=== PATIENT | female | born 1960 | race Caucasian/White ===

== ENCOUNTER 2021-10-03 12:24 | Outpatient (CLI) | payer OTHER, SELFPAY ==
--- NOTE | 2021-10-03 | ECHO_ITS ---
Patient Info Name: Marlene Grossman Age: 60 years : 1960 Gender: Female Ht: 64 in Wt: 150 lbs BSA: 1.77 m2 HR: 65 bpm BP: 127 / 69 mmHg Heart Rhythm: Sinus Rhythm Technical Quality: Good Exam Date: 10/03/2021 1:15 PM Exam Location: [facility] Patient Status: Outpatient Admit Date: 10/03/2021 Staff Ordering Physician: SavageAnne-Marie Practice Professional: Debbie Nolen RDCS Attending Provider: Savage, Anne-Marie VANEGAS Referring Physician: Savage BUTT; Exam Type: CA echo doppler color flow Study Info Indications - CARDIAC MURMUR Complete two-dimensional, color flow and Doppler transthoracic echocardiogram is performed. Summary 1. Complete two-dimensional, color flow and Doppler transthoracic echocardiogram is performed. 2. Normal left ventricular size with mild concentric hypertrophy and a mild degree of asymmetric septal hypertrophy as well. Hyperdynamic left ventricular systolic function, ejection fraction greater than 72%. No segmental wall motion abnormalities. Grade 2 diastolic dysfunction is present. 3. There is a mildly increased intraventricular gradient with Valsalva maneuver of 2.6 m/sec which corresponds to an intraventricular gradient of about 28 mmHg consistent with a very mild degree of outflow tract obstruction, consistent with hypertrophic obstructive cardiomyopathy. 4. Left atrial chamber dimension is moderately enlarged. 5. There is mild tricuspid valve regurgitation. 6. Mild pulmonary hypertension, estimated pulmonary arterial systolic pressure is 37 mmHg. 7. Normal sinus rhythm. Left Ventricle Left ventricular chamber dimension is normal. Left ventricular systolic function is hyperdynamic, estimated at Empty. There is mildly increased left ventricular wall thickness. Left ventricular septal wall motion is normal. The left ventricular diastolic function is grade II diastolic dysfunction. Right Ventricle Right ventricular chamber dimension is normal. Right ventricular systolic function is normal. Left Atria Left atrial chamber dimension is moderately enlarged. Right Atria Right atrial chamber dimension is normal. Aortic Valve The aortic valve is trileaflet. There is mild aortic valve sclerosis. There is no aortic valve stenosis. There is trace aortic valve regurgitation. Pulmonic Valve The pulmonic valve is normal. There is no pulmonic valve stenosis. There is trace pulmonic regurgitation. Mitral Valve The mitral valve has normal leaflets. There is no mitral valve stenosis. There is no mitral valve regurgitation. The mitral valve annulus is moderately calcified. Tricuspid Valve The tricuspid valve leaflets are normal. There is no significant tricuspid valve stenosis. There is mild tricuspid valve regurgitation. Mild pulmonary hypertension, estimated pulmonary arterial systolic pressure is 37 mmHg. Pericardium/Pleural The pericardium appears normal. There is no pericardial effusion. Inferior Vena Cava Normal inferior vena cava with >50% collapse upon inspiration consistent with Empty right atrial pressure, 10 mmHg. Aorta The aortic root size at the sinus of Valsalva is normal. The prox ascending aorta size is normal. Left Ventricular Outflow Tract Name Value Normal LVOT 2D
== END 2021-10-03 12:25 | disposition home or self-care (01) ==
LOC: ANHCARD 12:29
PROVIDERS: PCP Physician Assistant; Visit Provider Physician Assistant
DX: R01.1 Cardiac murmur, unspecified (principal)
CPT/HCPCS: 93306

== ENCOUNTER 2022-03-06 19:26 | Emergency (ER) | payer OTHER, SELFPAY ==
[2022-03-06 19:33] VITALS: BP 140/71; PULSE 68; RESP 16; TEMP 36.8; O2SAT 99
--- NOTE | 2022-03-06 19:34 | ED.DENTAL ---
HPI - Dental/Oral General Chief complaint: Dental/Oral Stated complaint: tooth ache Time Seen by Provider: 03/06/22 19:34 Source: patient Mode of arrival: ambulatory Limitations: no limitations History of Present Illness HPI Narrative: Mr. Grossman is a 7-year-old patient presenting to the clinic today with complaints of dental pain. She reports that she had a filling fall out of her top wisdom tooth couple days ago and she got a piece of meat stuck in there and has used a toothpick to pick that out. She thinks that that she now has tooth infection to the bilateral upper back teeth Related Data Home Medications Medication Instructions Recorded Confirmed lisinopril 10 mg tablet 10 mg PO DAILY 01/03/22 01/03/22 Allergies Allergy/AdvReac Type Severity Reaction Status Date / Time No Known Allergies Allergy Verified 03/06/22 19:27 Review of Systems Review of Systems: Pertinent positives per HPI. Patient denies any fever, chills, rash, headache, visual changes, dizziness, cough, runny nose, sore throat, shortness of breath, chest pain, palpitations, nausea, vomiting, diarrhea, constipation, abdominal pain, or any urinary issues. [facility] Past Medical History Medical History Anxiety Family History Family History Father Renal cancer Cerebrovascular accident Sibling Liver cancer Cerebrovascular accident Mother Hypertension Brain aneurysm Social History Social History Smoking status: Never smoker Comments At the time of my signature, I reviewed and agree with the nursing past medical, surgical, social, and family history. There is no relevant family history pertinent to the patient complaint. Exam Narrative: General: Well-developed, well nourished, in no apparent distress Head: Normocephalic, atraumatic Eyes: Pupils equally round and reactive to light bilaterally, EOM intact, sclera and conjunctive clear, no discharge, lids normal Ears: TMs intact and clear, ear canals clear, no drainage, grossly hearing normal. Nose: Nares patent, no discharge, no inflammation, no sinus tenderness. Mouth: Oropharynx without lesions or masses, poor dentition, MMM. Gum swelling and fractured tooth #16, pain and gingival swelling to #1 Neck: Supple, trachea midline, no enlargement of anterior or posterior cervical nodes, no thyroid masses or goiter palpable. Cardio: Regular rate and rhythm, s1 and s2 normal, no murmur appreciated. Resp: Clear to auscultation bilaterally anteriorly and posteriorly, no rhonchi, rales, wheezing or rubs Course Course Emergency Course: Portions of this record may have been created with voice recognition software. Level of Care: Express Care Visit Vital Signs Vital signs: Vital signs reviewed MDM - Dental/Oral MDM Narrative Medical decision making narrative: At the time of visit patient is resting comfortably on the exam table. I suspect patient has a dental infection. I will give her a prescription for amoxicillin and have her follow-up with her dentist soon as possible. Supportive measures were discussed with the patient she voiced understanding of discharge instructions and agrees to treatment plan. Differential Diagnosis Differential diagnosis: Likely dental caries, toothache, dental abscess and fracture of tooth Discharge Plan Discharge Clinical Impression: Dental infection Patient Disposition: Home, Self-Care Condition: Stable Instructions: Antibiotic Form, Toothache (ED) Additional Instructions: Take Tylenol/Motrin as needed for pain or fever Take amoxicillin as prescribed May apply heating pad to the affected area to help alleviate pain Follow-up with your dentist as soon as possible Follow-up with your PCP in 3 to 5 days if symptoms persist or sooner if they worsen
== END 2022-03-06 19:38 | disposition home or self-care (01) ==
PROVIDERS: Emergency Provider Nurse Practitioner Family; PCP Physician Assistant
DX: K04.7 Periapical abscess without sinus (principal); I10 Essential (primary) hypertension
CPT/HCPCS: 99213; G0463

== ENCOUNTER 2022-03-26 16:29 | Emergency (ER) | payer OTHER, SELFPAY ==
[2022-03-26 16:40] VITALS: BP 142/58; PULSE 68; RESP 16; TEMP 36.1; O2SAT 98
--- NOTE | 2022-03-26 17:30 | ED.URI ---
HPI - URI/Sore Throat General Chief Complaint: Upper Respiratory Infection Stated Complaint: cough Time Seen by Provider: 03/26/22 17:20 Source: patient, RN notes reviewed and old records reviewed Mode of arrival: ambulatory Limitations: no limitations History of Present Illness HPI Narrative: 61 year old female who presents to [facility] care with complaints of cough and is concerned that she has COVID. Patient reports that her sister tested positive for COVID yesterday and she has been around her. Patient reports that she is tired and achy and has noted hoarseness.She reports that she finished antibiotic on Friday for dental infection and is suppose to have her 3 teeth pulled on Friday. Patient reports that she has not had COVID vaccinations has not done home test. MD elicited complaint: cough and sore throat Onset (ago): day(s) (1) Treatments prior to arrival: other (just completed amoxicillin for dental infection) Related Data Home Medications Medication Instructions Recorded Confirmed lisinopril 10 mg tablet 10 mg PO DAILY 01/03/22 01/03/22 amlodipine 10 mg tablet mg 03/26/22 Allergies Allergy/AdvReac Type Severity Reaction Status Date / Time No Known Allergies Allergy Verified 03/26/22 16:54 Review of Systems Review of Systems: CONSTITUTIONAL: Denies malaise, chills, sweats, or fever. EYES: Denies visual changes, redness, or discharge. ENT: Reports rhinorrhea, congestion,no sinus pain, otalgia or sore throat. CARDIOVASCULAR: Denies chest pain, palpitations, or edema. RESPIRATORY: Reports cough.? Denies dyspnea. GASTROINTESTINAL: Denies abdominal pain, nausea, vomiting, diarrhea SKIN: Denies rash or itching. MUSCULOSKELETAL:Reports myalgia. NEUROLOGIC: Denies headache. All systems reviewed & are unremarkable except as noted in HPI and below PMFSH Past Medical History Medical History (Updated 03/28/22 @ 22:00 by Rachelle Portillo NP) Anxiety Cellulitis History of dental problems Hypertension Family History Family History Father Renal cancer Cerebrovascular accident Sibling Liver cancer Cerebrovascular accident Mother Hypertension Brain aneurysm Social History Social History (Updated 03/28/22 @ 22:03 by Rachelle Portillo NP) Smoking status: Never smoker Alcohol intake: unknown Substance use: never Living arrangements: with family Gender identity (if verbalized by the patient): Female Comments At time of signature, agree with nursing past medical, surgical, social and family history. There is no relevant family history pertinent to the presenting complaint Exam Narrative: GENERAL: Well-appearing, well-nourished, and in no acute distress. HEAD: Normocephalic EYES: PERRLA, conjunctivae clear ENT: Nares clear, turbinates edematous and erythematous, clear discharge. Mucous membranes moist. TM pearly bang with dull light reflex bilaterally; no tragal tenderness. Oropharynx erythematous without lesions. Tonsils not enlarged and without exudate, no drooling, no hoarseness, no trismus, uvula midline, post nasal discharge NECK: Supple. No lymphadenopathy CHEST: Clear to auscultation, breath sounds equal. No wheezing, rhonchi, rales, or stridor. No respiratory distress, speaks in full sentences. cough noted SAO2 98% on room air HEART: Regular rate and rhythm. No murmur heard. SKIN: Warm, dry, no rash. NEURO: Alert and oriented x3. PSYCH: Normal mood and affect Course Course Emergency Course: Patient is aware of diagnosis, understands and agrees to treatment plan.? Anticipatory guidance given.? Patient agrees to follow-up as directed and is aware of reasons to seek care at the emergency department. Portions of this record may have been created with voice recognition software Level of Care: Express Care Visit Vital Signs Vital signs: Vital Signs Temperature 36.1 C L 03/26/22 16:40 P
== END 2022-03-26 17:38 | disposition home or self-care (01) ==
PROVIDERS: Emergency Provider Registered Nurse; PCP Physician Assistant
DX: J06.9 Acute upper respiratory infection, unspecified (principal); Z20.822 Contact with and (suspected) exposure to COVID-19; I10 Essential (primary) hypertension
CPT/HCPCS: 87426; 99213; C9803; G0463

== ENCOUNTER 2023-03-27 08:41 | Outpatient (CLI) | payer OTHER, SELFPAY ==
--- NOTE | 2023-03-27 08:54 | ECHO_ITS ---
Patient Info Name: Marlene Grossman Age: 62 years : 1960 Gender: Female Ht: 64 in Wt: 150 lbs BSA: 1.77 m2 HR: 64 bpm BP: 127 / 68 mmHg Technical Quality: Good Exam Date: 03/27/2023 8:58 AM Exam Location: [facility] Patient Status: Outpatient Admit Date: 03/27/2023 Staff Ordering Physician: Vance Stokes DO [employer] Blower Feeder: Yuli Freitas RDCS Attending Provider: Vance Stokes DO Referring Physician: Kike THAKUR; Exam Type: CA echo doppler color flow Study Info Indications I42.2 - Other hypertrophic cardiomyopathy Complete two-dimensional, color flow and Doppler transthoracic echocardiogram is performed. Summary 1. Complete two-dimensional, color flow and Doppler transthoracic echocardiogram is performed. 2. Left ventricular chamber dimension is normal. 3. Ventricular septum is sigmoid shaped. No LVOT obstruction. 4. Left ventricular systolic function is hyperdynamic, estimated at >70%. 5. There is mild concentric increased left ventricular wall thickness. 6. The left ventricular diastolic function is grade I diastolic dysfunction. 7. E/e' 22 is elevated. 8. Global longitudinal strain is normal at -18.9%. 9. Left atrial chamber dimension is moderately enlarged. 10. There is moderate aortic valve sclerosis. 11. There is mild aortic valve regurgitation. 12. The mitral valve has moderately calcified annulus. 13. No pulmonary hypertension, estimated pulmonary arterial systolic pressure is 24 mmHg. Left Ventricle Ventricular septum is sigmoid shaped. No LVOT obstruction. E/e' 22 is elevated. Global longitudinal strain is normal at -18.9%. Left ventricular chamber dimension is normal. Left ventricular systolic function is hyperdynamic, estimated at >70%. There is mild concentric increased left ventricular wall thickness. The left ventricular diastolic function is grade I diastolic dysfunction. Right Ventricle Right ventricular chamber dimension is normal. Right ventricular systolic function is normal. Left Atria Left atrial chamber dimension is moderately enlarged. Right Atria Right atrial chamber dimension is normal. Aortic Valve The aortic valve is trileaflet. There is moderate aortic valve sclerosis. There is no aortic valve stenosis. There is mild aortic valve regurgitation. Pulmonic Valve There is no pulmonic regurgitation. Mitral Valve The mitral valve has moderately calcified annulus. There is no mitral valve stenosis. There is no mitral valve regurgitation. Tricuspid Valve There is no tricuspid valve regurgitation. No pulmonary hypertension, estimated pulmonary arterial systolic pressure is 24 mmHg. Pericardium/Pleural There is no pericardial effusion. Inferior Vena Cava Normal inferior vena cava with >50% collapse upon inspiration consistent with normal right atrial pressure, 5 mmHg. Aorta The aortic root size at the sinus of Valsalva is normal. Left Ventricular Outflow Tract Name Value Normal LVOT 2D LVOT Diameter 2.1 cm LVOT Doppler LVOT Peak Gradient 21 mmHg LVOT Mean Gradient 12 mmHg LVOT VTI 50 cm LVOT VTI/AV VTI Ratio 0.9 L
== END 2023-03-27 08:42 | disposition home or self-care (01) ==
LOC: ANHCARD 08:41
PROVIDERS: PCP Physician Assistant; Visit Provider Internal Medicine Cardiovascular Disease
DX: I42.2 Other hypertrophic cardiomyopathy (principal); I35.1 Nonrheumatic aortic (valve) insufficiency
CPT/HCPCS: 93306

== ENCOUNTER 2024-07-31 15:22 | Emergency (ER) | payer SELFPAY ==
--- OUTSIDE RECORDS SUMMARY | 2024-07-31 15:24 | XMS_ITS | Data Portability ---
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 if for blood work fro yesterdays visit. Not available 09/25/2023 11:32:25 11/24/2023 11/24/2023 sister with her today was also checked for these worms and non were found. she was gieven albendazole. Not available 11/24/2023 14:10:01 Plan of Treatment Reminders Order Date Submit Date Provider Last Modified By Organization Details Last Modified Time Details Appointments None recorded. Lab O&P (ova & parasites), stool 2024 025 PAWEL Mcneal, [address], [place], [address], 5 16:14:12 O&P (ova & parasites), stool 2023 024 PAWEL Mcneal, [address], [place], [address], 4 15:15:47 CMP, serum or plasma 2023 024 PAWEL Mcneal, [address], [place], [address], 4 09:18:46 albumin/cre atinine, mass ratio, urine 2023 024 [facility], [address], [place], [address], 4 09:18:45 lipid panel, serum 2023 024 [facility], [address], [place], [address], 4 09:18:45 CBC w/ auto diff 2023 024 [facility], [address], [place], [address], 4 09:18:47 HbA1c (hemoglobin A1c), blood 2023 024 [facility], [address], [place], [address], 4 09:18:47 O&P (ova & parasites), stool 2023 024 [facility], [address], [place], [address], 4 11:15:33 Referral gastroenter ologist referral 2023 024 [facility], [address], [place], [address], 4 14:45:48 Procedures None recorded. Surgeries None recorded. Imaging None recorded. Medication Orders aripiprazol e 10 mg tablet 2024 025 [facility], [address] [place] [address], [id number], 5 16:13:41 aripiprazol e 5 mg tablet 2023 024 [facility], [address], [place], [id number], 17:15:49 sertraline 50 mg tablet 2023 024 [facility], [address], [place], [id number], 12:33:55 sertraline 50 mg tablet 2023 024 [facility] #[id number], [address], [place], [address], 12:18:06 Patient TargetsNo targets recorded. Patient Instructions Encounter Date Encounter Id Patient Instructions Last Modified By Organization Details Last Modified Time 09/23/2023 [id number] A healthy lifestyle: care instructions Not available 09/25/2023 08:47:36 learning about high blood pressure Not available 09/23/2023 15:20:03 11/24/2023 [id number] I have reviewed the patient's medical record and the note from this clinical encounter. I was available by phone for the duration of the visit. I agree with the assessment and plan with the following addendum: [none]. Sven Clemens MD [email or web address] Not available 11/24/2023 20:11:31 07/06/2024 [id number] A healthy lifestyle: care instructions Not available 07/06/2024 14:04:07 Reason for Referral News Clerk Referral for Worms in stool Referring Physician: Patti Lund, Physical Therapy Aid, Encounter Date: 09/23/2023 Results Created Date Observation Date Name Description Value Unit Range Abnormal Flag Note LastModifiedBy Organization Detail LastModifiedTime 09/23/19 24 09/26/2023 ALBUM IN/CR EATIN INE RATIO ,URIN E creatinine, urine 99.6 mg/dL notest ab. Not Available [facility] ([facility]) [address], [place], [address], 09/26/2023 09:18:45 09/23/19 24 09/26/2023 ALBUM IN/CR EATIN INE RATIO ,URIN E albumin, urine 30.1 ug/mL notest ab. Not Available [facility] ([facility]) [address] [place], [address], 09/26/2023 09:18:45 09/23/19 24 09/26/2023 ALBUM IN/CR EATIN INE RATIO ,URIN E alb/creat ratio 30 mg/g_ creat 0-29 above high normal Carmelina l: 0 - 29 Moder ately incre ased: 30 - 300 Sever bhanu incre ased: >300 Not Available [facility] ([facility]) [address] [place], [address], 09/26/2023 09:18:45 09/23/19 24 09/26/2023 LIPID PANEL cholesterol, total 197 mg/dL 100-19 9 Not Available [facility] ([facility]) [address] [place], [address], 09/26/2023 09:18:45 09/23/19 24 09/26/2023 LIPID PANEL triglyceride s 204 mg/dL 0-149 above high normal Not Available [facility] ([facility]) [address] [place], [address], 09/26/2023 09:18:45 09/23/19 24 09/26/2023 LIPID PANEL HDL cholesterol 43 mg/dL >39 Not Available [facility] [address] [place], [address], 09/26/2023 09:18:45 09/23/19 24 09/26/2023 LIPID PANEL VLDL cholesterol collin 36 mg/dL 5-40 Not Available [facility] [address] [place], [address], 09/26/2023 09:18:45 09/23/19 24 09/26/2023 LIPID PANEL LDL chol calc ([facility]) 118 mg/dL 0-99 above high normal Not Available [facility]) [address] [place], [address], 09/26/2023 09:18:45 09/23/19 24 09/26/2023 COMP. METAB OLIC PANEL (14) glucose 97 mg/dL 70-99 Not Available [facility] ([facility]) [address] [place], [address], 09/26/2023 09:18:46 09/23/19 24 09/26/2023 COMP. METAB OLIC PANEL (14) BUN 32 mg/dL 8-27 above high normal Not Available [facility] ([facility]) [address] [place], [address], 09/26/2023 09:18:46 09/23/19 24 09/26/2023 COMP. METAB OLIC PANEL (14) creatinine 0.89 mg/dL 0.57-1 .00 Not Available [facility] ([facility]) [address] [place], [address], 09/26/2023 09:18:46 09/23/19 24 09/26/2023 COMP. METAB OLIC PANEL (14) eGFR 74 mL/mi n/1.7 3 >59 Not Available [facility] ([facility]) [address] [place], [address], 09/26/2023 09:18:46 09/23/19 24 09/26/2023 COMP. METAB OLIC PANEL (14) BUN/creatini ne ratio 36 12-28 above high normal Not Available [facility] ([facility]) [address] [place], [address], 09/26/2023 09:18:46 09/23/19 24 09/26/2023 COMP. METAB OLIC PANEL (14) sodium 142 mmol/ L 134-14 4 Not Available [facility] ([facility]) [address] [place], [id number], 09/26/2023 09:18:46 09/23/19 24 09/26/2023 COMP. METAB OLIC PANEL (14) potassium 4.5 mmol/ L 3.5-5. 2 Not Available [facility] ([facility]) [address] [place], [id number], 09/26/2023 09:18:46 09/23/19 24 09/26/2023 COMP. METAB OLIC PANEL (14) chloride 108 mmol/ L 96-106 above high normal Not Available [facility] [address] [facility] [place], [address], 09/26/2023 09:18:46 09/23/19 24 09/26/2023 COMP. METAB OLIC PANEL (14) carbon dioxide, total 23 mmol/ L 20-29 Not Available [facility] [address] [facility], [address], 09/26/2023 09:18:46 09/23/19 24 09/26/2023 COMP. METAB OLIC PANEL (14) calcium 9.0 mg/dL 8.7-10 .3 Not Available [facility]) [address] [facility] [place], [address], 09/26/2023 09:18:46 09/23/19 24 09/26/2023 COMP. METAB OLIC PANEL (14) protein, total 6.4 g/dL 6.0-8. 5 Not Available [facility] ([facility]) [address] [facility] [place], [address], 09/26/2023 09:18:46 09/23/19 24 09/26/2023 COMP. METAB OLIC PANEL (14) albumin 3.9 g/dL 3.9-4. 9 Not Available [facility] ([facility]) [address] [facility] [place], [place], [address], 09/26/2023 09:18:46 09/23/19 24 09/26/2023 COMP. METAB OLIC PANEL (14) globulin, total 2.5 g/dL 1.5-4. 5 Not Available [facility] ([facility]) [address] [facility], [id number], 09/26/2023 09:18:46 09/23/19 24 09/26/2023 COMP. METAB OLIC PANEL (14) A/G ratio 1.6 1.2-2. 2 Not Available [facility] [address] [facility], [id number], 09/26/2023 09:18:46 09/23/19 24 09/26/2023 COMP. METAB OLIC PANEL (14) bilirubin, total 0.3 mg/dL 0.0-1. 2 Not Available [facility]) [address] [facility] [place], [place], [address], 09/26/2023 09:18:46 09/23/19 24 09/26/2023 COMP. METAB OLIC PANEL (14) alkaline phosphatase 92 IU/L 44-121 Not Available [facility] [address] [facility] [place], [address], 09/26/2023 09:18:46 09/23/19 24 09/26/2023 COMP. METAB OLIC PANEL (14) AST (SGOT) 18 IU/L 0-40 Not Available [facility]) [address] [facility] [place], [address], 09/26/2023 09:18:46 09/23/19 24 09/26/2023 COMP. METAB OLIC PANEL (14) ALT (SGPT) 23 IU/L 0-32 Not Available [facility]) [address] [facility] [place], [address], 09/26/2023 09:18:46 09/23/19 24 09/26/2023 HEMOG LOBIN A1C hemoglobin A1C 5.7 % 4.8-5. 6 above high normal Predi abete s: 5.7 - 6.4 Diabe peyton: >6.4 Glyce michael contr ol for adult s with diabe peyton: <7.0 Not Available [facility] ([facility]) [address] [facility] [place], [place], [address], 09/26/2023 09:18:47 09/23/19 24 09/26/2023 CBC WITH DIFFE RENTI AL/PL ATELE T WBC 4.8 x10e3 /uL 3.4-10 .8 Not Available [facility]) [address] [facility] [place], [place], [address], 09/26/2023 09:18:47 09/23/19 24 09/26/2023 CBC WITH DIFFE RENTI AL/PL ATELE T RBC 4.30 x10e6 /uL 3.77-5 .28 Not Available [facility]) [address] [facility] [place], [place], [address], 09/26/2023 09:18:47 09/23/19 24 09/26/2023 CBC WITH DIFFE RENTI AL/PL ATELE T hemoglobin 12.6 g/dL 11.1-1 5.9 Not Available [facility]) [address] [facility] [place], [place], [address], 09/26/2023 09:18:47 09/23/19 24 09/26/2023 CBC WITH DIFFE RENTI AL/PL ATELE T hematocrit 37.8 % 34.0-4 6.6 Not Available [facility]) [address] [facility] [place], [place], [address], 09/26/2023 09:18:47 09/23/19 24 09/26/2023 CBC WITH DIFFE RENTI AL/PL ATELE T MCV 88 fL 79-97 Not Available [facility]) [address] [facility] [place], [place], [address], 09/26/2023 09:18:47 09/23/19 24 09/26/2023 CBC WITH DIFFE RENTI AL/PL ATELE T MCH 29.3 pg 26.6-3 3.0 Not Available [facility]) [address] [facility] [place], [place], [address], 09/26/2023 09:18:47 09/23/19 24 09/26/2023 CBC WITH DIFFE RENTI AL/PL ATELE T MCHC 33.3 g/dL 31.5-3 5.7 Not Available [facility] ([facility]) [address] [facility] [place], [place], [address], 09/26/2023 09:18:47 09/23/19 24 09/26/2023 CBC WITH DIFFE RENTI AL/PL ATELE T RDW 12.9 % 11.7-1 5.4 Not Available [facility] ([facility]) [address] [facility] [place], [place], [address], 09/26/2023 09:18:47 09/23/19 24 09/26/2023 CBC WITH DIFFE RENTI AL/PL ATELE T platelets 285 x10e3 /uL 150-45 0 Not Available [facility]) [address] [facility] [place], [place], [address], 09/26/2023 09:18:47 09/23/19 24 09/26/2023 CBC WITH DIFFE RENTI AL/PL ATELE T neutrophils 46 % notest ab. Not Available [facility] ([facility]) [address] [place], [address], 09/26/2023 09:18:47 09/23/19 24 09/26/2023 CBC WITH DIFFE RENTI AL/PL ATELE T lymphs 38 % notest ab. Not Available [facility]) [address] [facility] [place], [place], [address], 09/26/2023 09:18:47 09/23/19 24 09/26/2023 CBC WITH DIFFE RENTI AL/PL ATELE T monocytes 10 % notest ab. Not Available [facility]) [address] [facility] [place], [place], [address], 09/26/2023 09:18:47 09/23/19 24 09/26/2023 CBC WITH DIFFE RENTI AL/PL ATELE T eos 5 % notest ab. Not Available [facility] ([facility]) [address] [facility] [place], [place], [address], 09/26/2023 09:18:47 09/23/19 24 09/26/2023 CBC WITH DIFFE RENTI AL/PL ATELE T basos 1 % notest ab. Not Available [facility] ([facility]) [address] [facility] [place], [place], [address], 09/26/2023 09:18:47 09/23/19 24 09/26/2023 CBC WITH DIFFE RENTI AL/PL ATELE T neutrophils (absolute) 2.2 x10e3 /uL 1.4-7. 0 Not Available [facility] ([facility]) [address] [facility] [place], [place], [address], 09/26/2023 09:18:47 09/23/19 24 09/26/2023 CBC WITH DIFFE RENTI AL/PL ATELE T lymphs (absolute) 1.8 x10e3 /uL 0.7-3. 1 Not Available [facility] ([facility]) [address] [facility] [place], [place], [address], 09/26/2023 09:18:47 09/23/19 24 09/26/2023 CBC WITH DIFFE RENTI AL/PL ATELE T monocytes(ab solute) 0.5 x10e3 /uL 0.1-0. 9 Not Available [facility]) [address] [facility] [place], [place], [address], 09/26/2023 09:18:47 09/23/19 24 09/26/2023 CBC WITH DIFFE RENTI AL/PL ATELE T eos (absolute) 0.2 x10e3 /uL 0.0-0. 4 Not Available [facility] ([facility]) [address] [facility] [place], [place], [address], 09/26/2023 09:18:47 09/23/19 24 09/26/2023 CBC WITH DIFFE RENTI AL/PL ATELE T baso (absolute) 0.1 x10e3 /uL 0.0-0. 2 Not Available [facility]) [address] [facility] [place], [place], [address], 09/26/2023 09:18:47 09/23/19 24 09/26/2023 CBC WITH DIFFE RENTI AL/PL ATELE T immature granulocytes 0 % notest ab. Not Available [facility]) [address] [facility] [place], [place], [address], 09/26/2023 09:18:47 09/23/19 24 09/26/2023 CBC WITH DIFFE RENTI AL/PL ATELE T immature grans (abs) 0.0 x10e3 /uL 0.0-0. 1 Not Available [facility] ([facility]) [address] [facility] [place], [place], [address], 09/26/2023 09:18:47 09/23/19 24 09/26/2023 SPECI MEN STATU S REPOR T specimen status report TNP Test not perfo rmed. No Ova / Wesley ite trans port conta iners recei rajat. TEST: [id number] Ova + Wesley ite Exam recei rajat stool in pill bottl e Not Available [facility] ([facility]) [address] [facility] [place], [place], [address], 09/26/2023 11:15:33 09/23/19 24 09/26/2023 OVA + WESLEY ITE EXAM ova + parasite exam - Test not perfo rmed. No Ova / Wesley ite trans port conta iners recei rajat. recei rajat stool in pill bottl e These resul ts were obtai peggy using wet prepa ratio n(s) and trich suki stain ed smear . This test does not inclu de testi ng for Crypt ospor idium parvu m, Cyclo spora , or Micro spori patria. Not Available [facility] ([facility]) [address] [place], [address], 09/26/2023 11:15:33 10/02/19 24 10/07/2023 OVA + WESLEY ITE EXAM ova + parasite exam Final report These resul ts were obtai peggy using wet prepa ratio n(s) and trich suki stain ed smear . This test does not inclu de testi ng for Crypt ospor idium parvu m, Cyclo spora , or Micro spori patria. Not Available [facility] ([facility]) [address] [place], [address], 10/07/2023 15:10:56 10/02/19 24 10/07/2023 OVA + WESLEY ITE EXAM result 1 Commen t No ova, cysts , or wesley ites seen. One negat qian speci men does not rule out the possi bilit y of a wesley itic infec tion. Not Available [facility] ([facility]) [address] [place], [address], 10/07/2023 15:10:56 11/24/19 24 11/27/2023 OVA + WESLEY ITE EXAM ova + parasite exam FINAL REPORT These resul ts were obtai peggy using wet prepa ratio n(s) and trich suki stain ed smear . This test does not inclu de testi ng for Crypt ospor idium parvu m, Cyclo spora , or Micro spori patria. Not Available [facility] ([facility]) [address] [place], [address], 11/27/2023 15:15:47 11/24/19 24 11/27/2023 OVA + WESLEY ITE EXAM result 1 COMMEN T No ova, cysts , or wesley ites seen. One negat qian speci men does not rule out the possi bilit y of a wesley itic infec tion. Not Available [facility] ([facility]) [address] [facility] [place], [place], [address], 11/27/2023 15:15:47 07/06/19 25 07/07/2024 OVA + WESLEY ITE EXAM ova + parasite exam FINAL REPORT These resul ts were obtai peggy using wet prepa ratio n(s) and trich suki stain ed smear . This test does not inclu de testi ng for Crypt ospor idium parvu m, Cyclo spora , or Micro spori patria. Not Available [facility] ([facility]) [address] [facility] [place], [place], [address], 07/07/2024 16:14:12 07/06/19 25 07/07/2024 OVA + WESLEY ITE EXAM result 1 COMMEN T No ova, cysts , or wesley ites seen. One negat qian speci men does not rule out the possi bilit y of a wesley itic infec tion. Not Available [facility] ([facility]) [address] [facility] [place], [place], [address], 07/07/2024 16:14:12 Result Notes None recorded. Problems Name Problem SNOMED Code Status Onset Date Resolution Date Notes Provider Name and Address Organization Details Recorded Time Hypertensi ve disorder 04811093 Active 2019 Radha Schofield RN null, [place] - [facility] 0 11:40:28 Increased thirst 029643582 Active 2019 ROMINA DC Attn: Accounting ,[address] [facility], [place], [address] , [place] [facility] 0 12:06:09 Pulmonary hypertensi on 90508550 Active 2021 ROMINA DC Attn: Accounting ,[address] [facility], [place], [address] , [place] - [facility] 2 15:44:13 Hypertroph ic cardiomyop athy 464781103 Active 2021 ROMINA DC Attn: Accounting ,[address] [facility], [place], [address] , [place] [facility] 2 15:44:14 Tenderness in popliteal fossa 156181757 Active 2022 ROMINA DC Attn: Accounting ,[address] [facility], [place], [address] , [place] [facility] 3 13:35:31 Pain of left knee joint 5912790185763 07 Active 2022 ROMINA DC Attn: Accounting ,[address] [facility], [place], [address] , [place] [facility] 3 13:35:31 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 Medical Equipment None Reported. Allergies No known drug allergies Medications Name Sig Start Date Stop Date Status Note LastModified by Organization Details LastModified Time losartan 50 mg tablet TAKE 1 TABLET BY MOUTH EVERY DAY active Not Available Not Available No t Available cyclobenzap rine 10 mg tablet TAKE 1 TABLET BY MOUTH TWICE DAILY NEEDED 10/01 completed Not Available Not Available Not Available amoxicillin 500 mg capsule TAKE 1 CAPSULE BY MOUTH EVERY 8 HOURS FOR 10 DAYS 06/25 completed Not Available Not Available Not Available promethazin e-DM 6.25 mg-15 mg/5 mL oral syrup TAKE 5 ML BY MOUTH EVERY 4 6 HOURS NEEDED FOR COUGH AND NAUSEA. 04/27 completed Not Available Not Available Not Available prednisone 10 mg tablet TAKE 4 TABLETS BY MOUTH FOR 3 DAYS, THEN 3 TABS X 2 DAYS, THEN 2 TABS X 1 DAY, THEN 1 TAB X 1 DAY 09/22 completed Not Available Not Available Not Available cetirizine 10 mg tablet Take 1 tablet every day by oral route for 90 days. 2021 active Not Available Not Available Not Avai lable azithromyci n 250 mg tablet 09/07 completed Not Available Not Available Not Available amlodipine 2.5 mg tablet TK 1 T PO D 04/27 completed Not Available Not Available Not Available amlodipine 5 mg tablet TK 1 T PO QD 07/26 completed Not Available Not Available Not Available sulfamethox azole 800 mg-trimetho prim 160 mg tablet TAKE 1 TABLET BY MOUTH TWICE DAILY WITH FOOD 09/07 completed Not Available Not Available Not Available acyclovir 800 mg tablet TAKE 1 TABLET BY MOUTH 5 TIMES DAILY DIRECTED 04/27 completed Not Available Not Available Not Available amlodipine 10 mg tablet TAKE 1 TABLET BY MOUTH EVERY DAY 10/08 completed Not Available Not Available Not Available benzonatate 100 mg capsule TAKE 1 CAPSULE BY MOUTH EVERY 6 TO 8 HOURS NEEDED FOR COUGH 10/01 completed Not Available Not Available Not Available lisinopril 10 mg tablet TAKE 1 TABLET BY MOUTH EVERY DAY 10/16 completed Not Available Not Available Not Available albendazole 200 mg tablet TAKE TWO TABLETS BY MOUTH EVERY DAY FOR TWO doses. TAKE TWO WEEKS APART 10/08 completed Not Available Not Available Not Available gabapentin 300 mg capsule PLEASE SEE ATTACHED FOR DETAILED DIRECTION S 04/27 completed Not Available Not Available Not Available hydroxyzine HCl 25 mg tablet TAKE ONE TABLET BY MOUTH DAILY 11/23 completed Not Available Not Available Not Available mupirocin 2 % topical ointment APPLY TOPICALLY TO THE SKIN TWICE DAILY 09/07 completed Not Available Not Available Not Available metoprolol succinate ER 25 mg tablet,exte nded release 24 hr TAKE 1 TABLET BY MOUTH EVERY DAY active Not Available Not Available No t Available methylpredn isolone 4 mg tablets in a dose pack TAKE 6 TABLETS ON DAY 1 DIRECTED ON PACKAGE AND DECREASE BY 1 TAB EACH DAY FOR A TOTAL OF 6 DAYS 09/22 completed Not Available Not Available Not Available albuterol sulfate HFA 90 mcg/actuati on aerosol inhaler INHALE 1 PUFF BY MOUTH EVERY 4 HOURS NEEDED active Not Available Not Available No t Available fluticasone propionate 50 mcg/actuati on nasal spray,suspe nsion SHAKE LIQUID AND USE 1 SPRAY IN EACH NOSTRIL DAILY 09/07 completed Not Available Not Available Not Available sertraline 50 mg tablet Take 1 tablet every day by oral route for 30 days. 11/23 completed Not Available Not Available Not Available amoxicillin 875 mg-jedalvaro peace clavulanate 125 mg tablet TAKE 1 TABLET BY MOUTH TWICE A DAY 09/22 completed Not Available Not Available Not Available azithromyci n 500 mg tablet TAKE 1 TABLET BY MOUTH EVERY DAY UNTIL ALL TAKEN 09/22 completed Not Available Not Available Not Available aripiprazol e 10 mg tablet TAKE ONE TABLET BY MOUTH EVERY MORNING active Not Available Not Available No t Available aripiprazol e 5 mg tablet TAKE ONE TABLET BY MOUTH EVERY DAY 12/28 completed Not Available Not Available Not Available Vitals Date Recorded Body height Body mass index (BMI) Body weight Heart rate Oxygen saturation Oxygen saturation in Arterial blood by Pulse oximetry Provider Name and Address Organization Details Last Updated DateTime 4 162.56 cm 26.8 kg/m2 47963.4 1 g 82 /min 97 % 97 % Lissette Mcconnell [facility] 4 14:35:44 Date Recorded Systolic blood pressure Diastolic blood pressure Provider Name and Address Organization Details Last Updated DateTime 09/23/2023 130 mm[Hg] 73 mm[Hg] ROMINA DC Attn: Accounting,[address] [place], [address], [place] - [place] 09/25/2023 08:45:46 Date Recorded Body height Body mass index (BMI) Body weight Heart rate Oxygen saturation Oxygen saturation in Arterial blood by Pulse oximetry Systolic blood pressure Diastolic blood pressure Provider Name and Address Organization Details Last Updated DateTime 4 162.56 cm 25.9 kg/m2 91751.4 5 g 81 /min 98 % 98 % 108 mm[Hg] 65 mm[Hg] Lissette Mcconnell [facility] 4 14:11:13 Date Recorded Body height Body mass index (BMI) Body weight Heart rate Oxygen saturation Oxygen saturation in Arterial blood by Pulse oximetry Systolic blood pressure Diastolic blood pressure Provider Name and Address Organization Details Last Updated DateTime 4 162.56 cm 26.3 kg/m2 95692.7 3 g 71 /min 95 % 95 % 136 mm[Hg] 73 mm[Hg] Lissette Mcconnell [facility] 4 12:07:33 Date Recorded Body height Body mass index (BMI) Body weight Heart rate Oxygen saturation Oxygen saturation in Arterial blood by Pulse oximetry Provider Name and Address Organization Details Last Updated DateTime 5 162.56 cm 26.8 kg/m2 20491.4 1 g 77 /min 98 % 98 % Lissette Mcconnell [facility] 5 10:42:14 Date Recorded Systolic blood pressure Diastolic blood pressure Provider Name and Address Organization Details Last Updated DateTime 07/06/2024 128 mm[Hg] 80 mm[Hg] ROMINA DC Attn: Accounting,[address] [place], [address], [facility] 07/06/2024 14:00:09 Social History Question Answer Notes LastModified by Organizat ion Details LastModified Time Tobacco Smoking Status Never Smoker Radha Scohfield RN [facility], [facility] 04/27/2020 11:43:41 Do You Have An Advance Directive? No Information not available 07/26/2020 What Is Your Level Of Alcohol Consumption? None Information not available 07/26/2020 Have You Been To An Area Known To Be High Risk For COVID-19? No Information not available 07/26/2020 Are You Currently Employed? Yes Information not available 07/26/2020 What Is Your Occupation? [employer] Information not available 07/26/2020 What Was The Date Of Your Most Recent Tobacco Screening? 07/06/2024 Information not available 07/06/2024 Do You Have Smoke And Carbon Monoxide Detectors In Your Home? Yes Information not available 07/26/2020 Are You Passively Exposed To Smoke? No Information no t available 07/26/2020 Do You Use Any Illicit Or Recreational Drugs? No Information not available 07/26/2020 Has Tobacco Cessation Counseling Been Provided? Yes Information not available 10/16/2022 On What Date Was Tobacco Cessation Counseling Provided? 09/23/2023 Information not available 09/23/2023 Do You Or Have You Ever Used Any Other Forms Of Tobacco Or Nicotine? No Information not available 07/26/2020 Sex: Female Functional Status None recorded. Mental Status None recorded. Family History Relationship Description Onset Age of this Age Resolved Age Notes LastModified by Organization Details LastModified Time Brother Carcinoma of urinary bladder [email or web address] Not available 2019 11:42:39 Father Renal cell carcinoma [email or web address] Not available 2019 11:43:00 Mother Intracranial aneurysm [email or web address] Not available 2019 11:43:18 Mother Hypertensive disorder [email or web address] Not available 2019 11:43:31 Medical History Condition Response Coronary Artery Disease N Other N Atrial Fibrillation N High Blood Pressure Y Kidney or Bladder Problems N Thyroid Problems N GI Problems N Depression N COPD N Blood Clots N Skin Problems N Anemia N Heart Attack ([place]) N Anxiety Disorder N Diabetes N Muscle, Joint, or Bone Problems N Seizures/Epilepsy N Acid Reflux (GERD) N Cancer N Stroke N Asthma N Allergies N High Cholesterol N Hepatitis N Liver Disease N Headaches N Heart Failure N Osteoporosis N Gynecological History Statement/Question Response Menses Monthly N Current Control Method Menopause Date of LMP LMP Unknown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
--- OUTSIDE RECORDS SUMMARY | 2024-07-31 15:24 | XMS_ITS | Data Portability ---
Author Organization [facility], Main Office Address [address] [place] [address] Assessment No assessment recorded. Plan of Treatment Reminders Order Date Submit Date Provider Last Modified By Organization Details Last Modified Time Details Appointments None recorded. Lab None recorded. Referral None recorded. Procedures None recorded. Surgeries None recorded. Imaging None recorded. Medication Orders mometasone 0.1 % topical cream 2023 024 [facility] #[id number], [address] [facility], [place], [address], 4 16:09:53 Patient TargetsNo targets recorded. Patient InstructionsNo instructions recorded. Reason for Referral None Reported. 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 Medical Equipment None Reported. Allergies No known drug allergies Medications Name Sig Start Date Stop Date Status Note LastModified by Organization Details LastModified Time losartan 50 mg tablet TAKE 1 TABLET BY MOUTH EVERY DAY active Not Available Not Available No t Available prednisone 10 mg tablet TAKE 4 TABLETS BY MOUTH FOR 3 DAYS, THEN 3 TABS X 2 DAYS, THEN 2 TABS X 1 DAY, THEN 1 TAB X 1 DAY 11/11 completed Not Available Not Available Not Available benzonatate 100 mg capsule TAKE 1 CAPSULE BY MOUTH EVERY 6 TO 8 HOURS NEEDED FOR COUGH 11/11 completed Not Available Not Available Not Available albendazole 200 mg tablet TAKE TWO TABLETS BY MOUTH EVERY DAY FOR TWO doses. TAKE TWO WEEKS APART 11/11 completed Not Available Not Available Not Available hydroxyzine HCl 25 mg tablet TAKE ONE TABLET BY MOUTH DAILY 11/11 completed Not Available Not Available Not Available metoprolol succinate ER 25 mg tablet,exte nded release 24 hr TAKE 1 TABLET BY MOUTH EVERY DAY active Not Available Not Available No t Available methylpredn isolone 4 mg tablets in a dose pack TAKE 6 TABLETS ON DAY 1 DIRECTED ON PACKAGE AND DECREASE BY 1 TAB EACH DAY FOR A TOTAL OF 6 DAYS 11/11 completed Not Available Not Available Not Available albuterol sulfate HFA 90 mcg/actuati on aerosol inhaler INHALE 1 PUFF BY MOUTH EVERY 4 HOURS NEEDED 11/11 completed Not Available Not Available Not Available mometasone 0.1 % topical cream APPLY A THIN LAYER TO THE AFFECTED AREA(S) BY TOPICAL ROUTE ONCE DAILY 2023 active Not Available Not Available Not Avai lable amoxicillin 875 mg-potassiu m clavulanate 125 mg tablet TAKE 1 TABLET BY MOUTH TWICE A DAY 11/11 completed Not Available Not Available Not Available azithromyci n 500 mg tablet TAKE 1 TABLET BY MOUTH EVERY DAY UNTIL ALL TAKEN 11/11 completed Not Available Not Available Not Available Vitals Date Recorded Body weight Body mass index (BMI) Body height Body temperature Provider Name and Address Organization Details Last Updated DateTime 11/12/2023 67949.86 g 25.7 kg/m2 162.56 cm 97.8 [degF] Migdalia Mccormick RN [facility] 11/12/2023 15:55:46 Social History Question Answer Notes LastModified by Organizat ion Details LastModified Time Tobacco Smoking Status Never Smoker Migdalia Mccormick RN null, [place] [facility] 11/12/2023 15:55:02 What Is Your Level Of Alcohol Consumption? None [email or web address] Information not available 11/12/2023 Sex: Unknown Functional Status None recorded. Mental Status None recorded. Family History Relationship Description Onset Age of this Age Resolved Age Notes LastModified by Organization Details LastModified Time Father No current problems or disability [email or web address] Not available 11/11 15:54:55 Mother No current problems or disability [email or web address] Not available 11/11 15:54:55 Notes:NO ENT Medical History Condition Response HYPERTENSION Y Gynecological HistoryNo gynecological history recorded. Obstetrics History GPAL:G 0 P 0 0 0 0 Past Encounters Encounter ID Performer Location Encounter Start Date Encounter Closed Date Diagnosis/Indication Diagnosis SNOMED-CT Code Diagnosis ICD10 Code Diagnosis Note [id number] Yaw Westbrook MD [facility] [place] [address] [place] [address] 11/12/2023 15:31:22 11/17/2023 09:37:31 Eczema of external auditory canal 25663552 H60.549 Sensorineu ral hearing loss 38067395 H90.5 Health Concerns Section Related Observation LastModified by Organization Detai ls LastModified Time None Recorded Concern Status LastModified by Organization Details LastModified Time None Recorded Advance Directives Directive None Recorded Payers Encounter Date Sequence Insurance Name Policy Number Policy Bales Covered Member ID Bales Member ID Guarantor Name 11/12/2023 1 *SELF PAY* Juan R Grossman Notes Date Note Type Note Provider Name and Address Organization Details Recorded Time 11/12/2023 text/html this patient reports that she has had a month of itching in the right ear. She thought that this was a pin worm. Has had some buzzing in the right ear as well and gets dizzy when she gets up quickly. She has been to several emergency rooms. Yaw Westbrook MD [address] [facility], [facility] [address], [place], [address], [facility] [employer] 11/12/2023 16:10:12 OBGyn Episode No OBEpisode recorded.
[2024-07-31 15:44] VITALS: BP 143/62; PULSE 76; RESP 18; TEMP 36.7; O2SAT 97
== END 2024-07-31 17:00 | disposition left against medical advice (07) ==
PROVIDERS: PCP Physician Assistant
DX: K92.1 Melena (principal)
CPT/HCPCS: 99199

== ENCOUNTER 2025-02-15 18:57 | Emergency (ER) | payer SELFPAY ==
[2025-02-15 19:08] VITALS: BP 153/71; PULSE 68; RESP 20; TEMP 36.5; O2SAT 100
--- NOTE | 2025-02-15 19:13 | ED_ITS ---
HPI - Skin/Abscess/Foreign Bdy General Chief complaint: Skin/Abscess/Foreign Body Stated complaint: scalp sores Time Seen by Provider: 02/15/25 19:27 Source: patient and RN notes reviewed Mode of arrival: ambulatory Limitations: no limitations History of Present Illness HPI narrative: 64-year-old female presents with concern for in itchy scalp. She says she conceived pinworms on her scalp and her hair. She reports she has had pinworms in her stool, she has taken multiple rounds of pinworm treatment, she has ingested and poured on her hair. She also reports she feels like she has Posadas worms coming out of her right ear. MD complaint: other (itchy scalp) Related Data Allergies Allergy/AdvReac Type Severity Reaction Status Date / Time No Known Allergies Allergy Verified 02/15/25 19:20 Review of Systems Review of Systems: CONSTITUTIONAL: Denies malaise, chills, sweats, or fever. EYES: Denies redness, or discharge. ENT: Denies rhinorrhea, congestion, swollen lips, swollen tongue CARDIOVASCULAR: Denies chest pain, palpitations, or edema. RESPIRATORY: Denies cough or dyspnea. GASTROINTESTINAL: Denies abdominal pain, nausea, vomiting SKIN: Reports itchy scalp MUSCULOSKELETAL: Denies joint pain or myalgia. NEUROLOGIC: Denies headache. All systems reviewed & are unremarkable except as noted in HPI and below PMFSH Past Medical History Medical History Anxiety Cellulitis History of dental problems Hypertension Family History Family History Father Renal cancer Cerebrovascular accident Sibling Liver cancer Cerebrovascular accident Mother Hypertension Brain aneurysm Social History Social History Smoking status: Never smoker Alcohol intake: unknown Substance use: never Living arrangements: with family Gender identity (if verbalized by the patient): Female Comments At time of signature, agree with nursing past medical, surgical, social and family history. There is no relevant family history pertinent to the presenting complaint Exam Narrative: GENERAL: Well-appearing, well-nourished, and in no acute distress. HEAD: Normocephalic, atraumatic. EYES: PERRLA, conjunctivae clear, and EOMI. ENT: Mucous membranes moist. Oropharynx without edema, erythema or lesions. Internal and external ears are normal, no foreign bodies noted NECK: Supple. No lymphadenopathy CHEST: Clear to auscultation. No respiratory distress. HEART: Regular rate and rhythm. SKIN: Warm, dry, no rash. Hair and scalp are completely unremarkable, no dry skin, no lesions on the scalp, no foreign bodies or insects noted on the hair or scalp. NEURO: Alert and oriented x3. PSYCH: Normal mood and affect Course Course Emergency Course: Patient is aware of diagnosis, understands and agrees to treatment plan. Anticipatory guidance given. Patient agrees to follow-up as directed and is aware of reasons to seek care at the emergency department. Portions of this record may have been created with voice recognition software Level of Care: Express Care Visit Vital Signs Vital signs: Vital Signs Temperature 97.7 F 02/15/25 19:08 Pulse Rate 68 02/15/25 19:08 Respiratory Rate 20 02/15/25 19:08 Blood Pressure 153/71 H 02/15/25 19:08 Pulse Oximetry 100 02/15/25 19:08 Oxygen Delivery Room Air 02/15/25 19:08 Temperature 97.7 F 02/15/25 19:08 Pulse Rate 68 02/15/25 19:08 Respiratory Rate 20 02/15/25 19:08 Blood Pressure 153/71 H 02/15/25 19:08 Pulse Oximetry 100 02/15/25 19:08 Oxygen Delivery Room Air 02/15/25 19:08 Reviewed. MDM - Skin/Abscess/Foreign Bdy MDM Narrative Medical decision making narrative: Does not appear at this time to be erythema multiforme, bullous, SJS, TEN; no evidence at this time to suggest RMSF, endocarditis or Lyme disease; patient looks well, nontoxic and is tolerating oral intake; no neurologic signs or symptoms; no headache, photophobia or neck pain; afebrile; appropriate for initial outpatient treatment; discussed the importance of follow-up, patient agrees; question, viral exanthema, contact dermatitis, allergic dermatitis, eczema, urticaria. No soft palate or uvula edema, no tongue, lip edema or other mucosal involvement, no respiratory compromise, no stridor, no wheezing, no wheezing, no history of syncope, no hypotension, no nausea, vomiting, or diarrhea. Instructed patient to go to nearest ER immediately for any worsening symptoms including but not limited to: fever, spreading rash, pain, sore throat, headache, dizziness, chest pain, trouble breathing, or any symptoms concerning to the patient. Critical Care Time Critical Care Time Critical Care Time: No Discharge Plan Discharge Clinical Impression: Itchy scalp Patient Disposition: Home Condition: Stable Instructions: General Patient Instructions Additional Instructions: 1) Please follow-up with your primary care doctor in the next 1-2 days. 2) If you have any urgent concerns please go to the ER. 3) Please take antihistamines such as Zyrtec as needed for itching. Use medicated tea tree shampoo and conditioner on her scalp for itchiness. 4) Please read and follow information included in discharge instructions. Patient Language: Turkish Prescriptions: No Action metoprolol succinate 25 mg tablet extended release 24 hr See Rx Instructions .ROUTE .COMPLEX Qty: 90 2RF Dose Instruction: TAKE 1 TABLET BY MOUTH EVERY DAY Rx Instructions: TAKE 1 TABLET BY MOUTH EVERY DAY losartan 50 mg tablet See Rx Instructions .ROUTE .COMPLEX Qty: 90 2RF Dose Instruction: TAKE 1 TABLET BY MOUTH EVERY DAY Rx Instructions: TAKE 1 TABLET BY MOUTH EVERY DAY Follow-up/Referrals: Myron Garcia MD [Physician, Family Practice] UNKNOWN,DOCTOR [Primary Care Provider] Time of Disposition: 19:36
== END 2025-02-15 19:43 | disposition home or self-care (01) ==
PROVIDERS: Emergency Provider Nurse Practitioner
DX: L29.9 Pruritus, unspecified (principal); I10 Essential (primary) hypertension
CPT/HCPCS: 99211; G0463